=== PATIENT | female | born 1950 | race Caucasian/White ===

== ENCOUNTER 2022-08-20 17:41 | Observation (INO) | payer MEDICARE ==
[2022-08-20] MEDS ORDERED: Acetaminophen 650 MG Suppository PR PRN (18:16)
[2022-08-20] MEDS ORDERED: hydrALAZINE 20 MG/ML VIAL SLOW IVP PRN (18:16)
[2022-08-20] MEDS ORDERED: Ondansetron ODT 4 MG TAB PO PRN (18:16)
[2022-08-20] MEDS ORDERED: Ondansetron PF 4 MG/2 ML Vial IVP PRN (18:16)
[2022-08-20 18:36] VITALS: BMI 31.0
[2022-08-20 18:39] LABS: Bilirubin Neg (Negative); Blood, Urine Negative (Negative); Clarity Clear (Clear); Glucose, Urine (Dipstick) Normal (Negative); Ketone, Urine Negative (Negative); Leukocyte 25 (Negative); Nitrite Negative (Negative); Protein, Urine (Dipstick) Negative (Neg-Trace); Urobilinogen Normal mg/dL (Less than 2)
[2022-08-20 18:51] LABS: Bacteria/HPF 2+ HPF (None Seen); RBC/HPF 0-3 HPF (0-3)
[2022-08-20 18:53] LABS: Mucous/LPF 1+ LPF (<2+)
[2022-08-20] MEDS: Atorvastatin Calcium 40 MG TAB PO SCH (21:13)
[2022-08-21] MEDS: Acetaminophen 325 MG TAB PO PRN ×3 (03:44→22:52)
[2022-08-21 05:59] LABS: #Eosinphils 0.3 10x3/uL (0.0-0.5); #Monocytes 0.6 10x3/uL (0.0-1.1); #Neutrophils 4.8 10x3/uL (1.5-8.4); %Basophils 0.4 % (0.0-2.0); %Eosinophils 3.5 % (0.0-6.0); %Lymphocytes 19.4 % (18.0-47.0); %Monocytes 8.9 % (0.0-10.0); %Neutrophils 67.4 % (40.0-75.0); Hemoglobin 11.5 g/dL (12.0-15.5); Mean Corpuscular HGB CONC 33.9 g/dL (32.0-36.0); Mean Corpuscular Hemoglobin 31.2 pg (27.0-33.0); Mean Corpuscular Volume 91.9 fl (81.6-98.3); Mean Platelet Volume 9.7 fl (7.4-10.4); Platelet Count 263 10x3/uL (150-450); RBC Distribution Width 13.7 % (11.5-14.5); Red Blood Cell (RBC) Count 3.69 10x6/uL (3.90-5.03); White Blood Cell (WBC) Count 7.1 10x3/uL (3.5-10.5)
[2022-08-21 06:12] LABS: Anion Gap 15 mmol/L (10-20); BUN (Urea Nitrogen) 23 mg/dL (9.8-20.1); Calc. Creatinine Clearance 84 mL/min (70-130); Carbon Dioxide 24 mmol/L (23-31); Chloride 106 mmol/L (98-107); Cholesterol 222 mg/dl (< 200 Desired); Estimated GFR 82; Glucose 102 mg/dL (80-115); HDL Cholesterol 75 mg/dL (>60 Neg Risk); LDL Cholesterol, Calculated 125 mg/dL; Potassium 3.9 mmol/L (3.5-5.1); Sodium 141 mmol/L (136-145); Triglycerides 112 mg/dL (Less than 150)
[2022-08-21] MEDS: Aspirin 81 mg Enteric Coated Tablet PO SCH (10:31)
[2022-08-21] MEDS ORDERED: Meclizine HCl 12.5 MG TAB PO PRN (10:47)
[2022-08-21] MEDS ORDERED: Magnevist 469MG/ML 20 ML VIAL ONE (12:32)
[2022-08-21] MEDS: Atorvastatin Calcium 40 MG TAB PO SCH (22:52)
[2022-08-22 03:58] LABS: #Eosinphils 0.3 10x3/uL (0.0-0.5); #Monocytes 0.6 10x3/uL (0.0-1.1); #Neutrophils 4.8 10x3/uL (1.5-8.4); %Basophils 0.4 % (0.0-2.0); %Eosinophils 4.1 % (0.0-6.0); %Lymphocytes 20.6 % (18.0-47.0); %Monocytes 7.9 % (0.0-10.0); %Neutrophils 66.7 % (40.0-75.0); Hemoglobin 11.9 g/dL (12.0-15.5); Mean Corpuscular HGB CONC 33.1 g/dL (32.0-36.0); Mean Corpuscular Hemoglobin 30.4 pg (27.0-33.0); Mean Corpuscular Volume 91.6 fl (81.6-98.3); Mean Platelet Volume 9.7 fl (7.4-10.4); Platelet Count 270 10x3/uL (150-450); RBC Distribution Width 13.6 % (11.5-14.5); Red Blood Cell (RBC) Count 3.92 10x6/uL (3.90-5.03); White Blood Cell (WBC) Count 7.2 10x3/uL (3.5-10.5)
[2022-08-22 04:07] LABS: Anion Gap 13 mmol/L (10-20); BUN (Urea Nitrogen) 22 mg/dL (9.8-20.1); Calc. Creatinine Clearance 88 mL/min (70-130); Carbon Dioxide 24 mmol/L (23-31); Chloride 106 mmol/L (98-107); Estimated GFR 86; Glucose 101 mg/dL (80-115); Potassium 3.9 mmol/L (3.5-5.1); Sodium 139 mmol/L (136-145)
[2022-08-22] MEDS: Aspirin 81 mg Enteric Coated Tablet PO SCH (09:46)
[2022-08-22 11:38] VITALS: BP 141/80; TEMP 97.4
== END 2022-08-22 13:42 | disposition home or self-care (01) ==
LOC: INTOOBSV 17:41 → CSHTELE 17:41
PROVIDERS: ADMIT Internal Medicine; ATTEND Family Medicine
DX: R42 Dizziness and giddiness (principal); I10 Essential (primary) hypertension; I87.303 Chronic venous hypertension (idiopathic) without complications of bilateral lower extremity; D64.9 Anemia, unspecified; M19.90 Unspecified osteoarthritis, unspecified site; Z79.82 Long term (current) use of aspirin; Z79.899 Other long term (current) drug therapy; Z88.2 Allergy status to sulfonamides; Z88.5 Allergy status to narcotic agent; Z90.710 Acquired absence of both cervix and uterus
CPT/HCPCS: 70551; 70552; 80048 ×2; 80061; 85025 ×2; 85730; 93306; 93880; 97116; G0378 ×3; U0003; U0005; 36415; 81003; 81015; A9579

== ENCOUNTER 2024-05-12 13:24 | Outpatient (CLI) | payer MEDICARE | END 2024-05-12 13:25 | disposition home or self-care (01) | LOC: CSHMAMMO 13:24 | PROVIDERS: ATTEND Internal Medicine | DX: M85.89 Other specified disorders of bone density and structure, multiple sites (principal) | CPT/HCPCS: 77080 ==